=== PATIENT | female | born 2000 | race Caucasian/White ===

== ENCOUNTER 2021-08-27 08:55 | Emergency (ER) | payer OTHER, SELFPAY ==
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
[2021-08-27 09:12] VITALS: BP 131/77; PULSE 81; RESP 16; TEMP 37.1; O2SAT 100
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
[2021-08-27 12:00] VITALS: BP 118/81; PULSE 73; RESP 12; O2SAT 100
[2021-08-27 12:31] VITALS: BP 127/86; PULSE 74; RESP 18; O2SAT 100
== END 2021-08-27 12:31 | disposition home or self-care (01) ==
PROVIDERS: Emergency Provider Emergency Medicine
DX: M79.622 Pain in left upper arm (principal); V43.52XA Car driver injured in collision with other type car in traffic accident, initial encounter
CPT/HCPCS: 73030; 73060; 99283